=== PATIENT | female | born 1990 | race Two or more races ===

== ENCOUNTER 2021-05-13 04:54 | Emergency (ER) | payer OTHER ==
[~2021-05-13] VITALS: Ht 160 cm; Wt 68.0 kg
[2021-05-13 05:55] LABS: Basophils # (auto) 0 10 ^3/uL (0-0.2); Basophils % (auto) 0.5 % (0.0-2.0); Eosinophils # (auto) 0 10 ^3/uL (0-0.8); Eosinophils % (auto) 0.3 % (0.0-7.0); Hematocrit 36.9 % (36.0-46.0); Hemoglobin 13.1 g/dL (12.2-16.2); Lymphocytes # (auto) 1.3 10 ^3/uL (0.4-5.4); Mean Corpuscular Hemoglobin 30.9 pg (28.0-32.0); Mean Corpuscular Hgb Conc. 35.4 g/dL (32.0-36.0); Mean Corpuscular Volume 87.2 fL (80.0-100.0); Monocytes # (auto) 0.6 10 ^3/uL (0-1.3); Monocytes % (auto) 6.3 % (0.0-12.0); Neutrophils # (auto) 7.1 10 ^3/uL (1.6-8.6); Neutrophils % (auto) 78.9 % (37.0-80.0); Nucleated Red Blood Cells % 0.1 %; Red Blood Cells 4.23 10^6/uL (4.0-5.20); Red Cell Distribution Width 13.3 % (11.8-14.3); White Blood Cell 8.9 10^3/uL (4.4-10.8)
[2021-05-13 06:13] LABS: Albumin 3.7 g/dL (3.4-5.0); Calcium 8.8 mg/dL (8.5-10.1)
[2021-05-13 06:16] LABS: BUN/Creatinine Ratio 22.2; Bilirubin, Total 0.5 mg/dL (0.2-1.0); Total Protein 7.3 g/dL (6.4-8.2)
[2021-05-13] MEDS ORDERED: SODIUM CHLORIDE 0.9% 1,000 ML IV ONE ×3 (06:30→06:45)
[2021-05-13 07:01] LABS: Urine WBC None Seen /hpf (0 - 5)
[2021-05-13 07:22] LABS: Urine Bacteria NONE SEEN /hpf (None Seen); Urine Blood Negative /uL (Negative); Urine Specific Gravity 1.009 (1.001-1.035)
[2021-05-13 07:50] VITALS: BP 98/52
== END 2021-05-13 07:57 | disposition home or self-care (01) ==
LOC: EDBD 04:54 → ER 04:54
DX: O26.891 Other specified pregnancy related conditions, first trimester (principal); O21.9 Vomiting of pregnancy, unspecified; Z90.49 Acquired absence of other specified parts of digestive tract; Z3A.08 8 weeks gestation of pregnancy
CPT/HCPCS: 36415; 80053; 81001; 84702; 85025; 85049; 96360